=== PATIENT | male | born 1980 | race Caucasian/White ===

== ENCOUNTER 2019-05-12 08:52 | Emergency (ER) | payer SELFPAY ==
[~2019-05-12] VITALS: Ht 167.6 cm; Wt 99.0 kg
[~2019-05-12 08:52] MED LIST: IBUP800T48 PO
[2019-05-12 08:55] VITALS: BP 150/87; PULSE 78; RESP 22; Ht 167.6 cm; Wt 99.0 kg
--- NOTE | 2019-05-12 09:17 | ERD ---
ER Documentation Chief Complaint Chief Complaint mid abdominal pain - possible hernia HPI 38-year-old male is here with a protrusion from his bellybutton that he is had for about 1 month. He believes the hernia. Occasionally is painful. He is had no fever. Has been able to push it in. No nausea or vomiting or diarrhea. Tolerating oral intake. Normal bowel movements. Has not seen his primary care doctor for this. ROS All systems reviewed and are negative except as per history of present illness. FmHx Family History: No diabetes Physical Exam Vitals Vital Signs Date Temp Pulse Resp B/P (MAP) Pulse Ox O2 O2 Flow FiO2 Time Delivery Rate 05/12/19 97.8 78 22 150/87 98 08:55 (108) Physical Exam Const: No acute distress Head: Atraumatic Eyes: Normal Conjunctiva ENT: Normal External Ears, Nose and Mouth. Neck: Full range of motion. No meningismus. Resp: Clear to auscultation bilaterally Cardio: Regular rate and rhythm, no murmurs Abd: Soft, non tender, non distended. Reducible umbilical hernia, nontender, no surrounding erythema Procedures/MDM Patient has an umbilical hernia. It is reducible. Low suspicion for incarcerated or strangulated hernia. Patient was given prescription for Motrin and encouraged to follow-up with primary care for outpatient referral to general surgery. Patient counseled regarding my diagnostic impression and care plan. Prior to discharge all questions answered. Pt agrees with treatment plan and understands strict return precautions. Pt is instructed to follow up with primary care provider within 24-48 hours. Precautionary instructions provided including instructions to return to the ER if not improving or for any worsening or changing symptoms or concerns. Departure Diagnosis: Primary Impression: Umbilical hernia Condition: Stable EUSEBIO GUSTAFSON PA-C May 12, 2019 09:17
== END 2019-05-12 09:44 | disposition home or self-care (01) ==
LOC: FTE 08:52
DX: K42.9 Umbilical hernia without obstruction or gangrene (principal)
CPT/HCPCS: 99282